=== PATIENT | male | born 1970 | race Caucasian/White ===

== ENCOUNTER 2021-09-01 18:26 | Emergency (ER) | payer OTHER, SELFPAY ==
--- NOTE | ~2021-09-01 | XR_ITS ---
EXAMINATION: XR ankle RT min 3V INDICATION: Right ankle pain, initial encounter TECHNIQUE: Four views of the right ankle are obtained. COMPARISON: None available FINDINGS: There is an acute, traumatic, closed, oblique fracture of the distal fibula which ends abov e the level of the tibial plafond. There is one cortical width of lateral displacement of the distal fracture fragment. There is soft tissue swelling at the fracture site. There is subtle irregularity a t the distal tip of the medial malleolus. IMPRESSION: 1. Oblique fracture of the distal fibula above the level of the tibial plafond. 2. Minimal irregularity at the distal tip of the medial malleolus. Correlate with the site for tender ness and possible nondisplaced avulsion. Reviewed, dictated and finalized at location A. IMPRESSION: 1. Oblique fracture of the distal fibula above the level of the tibial plafond. 2. Minimal irregularity at the distal tip of the medial malleolus. Correlate wi th the site for tenderness and possible nondisplaced avulsion.
--- NOTE | 2021-09-01 18:52 | ED.LOWEXIN ---
HPI - Extremity Injury (Lower) General Chief Complaint: Extremity Injury, Lower Stated Complaint: ankle pain Source: patient and family Mode of arrival: ambulatory History of Present Illness HPI Narrative: was playing with kids and slipped in the wet grass. ankle jaky TRUONG complaint: ankle injury Injury: Right: ankle Place: street/outdoors Severity: moderate Relieving factors: rest Exacerbating factors: weight bearing Context: running and walking Associated symptoms: snap/pop sensation Other symptoms: none Related Data Home Medications Medication Instructions Recorded Confirmed No Home Medications 09/01/21 09/01/21 Allergies Allergy/AdvReac Type Severity Reaction Status Date / Time No Known Allergies Allergy Unverified 09/01/21 18:57 Review of Systems Review of Systems: All systems reviewed & are unremarkable except as noted in HPI and below PMFSH Social History Social History (Updated 09/01/21 @ 18:53 by Jacinda Ocampo MD) Smoking status: Current every day smoker Alcohol intake: current Substance use: never Living arrangements: with family Exam Const: General: no acute distress and alert Orientation/consciousness: patient oriented x3 HENMT: Head: normal to inspection Eyes: Conjunctivae: conjunctivae normal Pupils: Equal, round and reactive pupils present Neck: Neck: normal visual inspection Chest: Chest palpation & inspection: normal inspection of the chest Resp: Effort & Inspection: normal respiratory effort Skin: General skin exam: normal color Neuro: General: patient oriented x3 Extrem: General: normal to inspection Other: r ankle tender to touch on lateral malleolus, mild swelling, no eccymosis Psych: Appearance: grossly normal Mental Status: mental status grossly normal Thought content: Yes Normal thought content present Critical Care Time Critical Care Time Critical Care Time: No Discharge Plan Discharge Clinical Impression: Fibula fracture Patient Disposition: Home, Self-Care Condition: Stable Instructions: Antibiotic Form, Ankle Fracture (ED) Prescriptions: No Action No Home Medications RF: 0 Follow-up/Referrals: Slade Flynn MD [Primary Care Provider] - Time of Disposition: 19:10
[2021-09-01 18:54] VITALS: BP 152/92; PULSE 92; RESP 20; TEMP 37.1; O2SAT 97
== END 2021-09-01 19:29 | disposition home or self-care (01) ==
PROVIDERS: Emergency Provider Emergency Medicine; PCP Family Medicine
DX: S82.831A Other fracture of upper and lower end of right fibula, initial encounter for closed fracture (principal); W01.0XXA Fall on same level from slipping, tripping and stumbling without subsequent striking against object, initial encounter; F17.200 Nicotine dependence, unspecified, uncomplicated
CPT/HCPCS: 73610; 99283; 99284; L2112

== ENCOUNTER 2021-09-09 09:49 | Outpatient (CLI) | payer OTHER, SELFPAY ==
--- NOTE | ~2021-09-09 | XR_ITS ---
XR ankle RT min 3V DATE: 09/09/2021 10:20 INDICATION: Lateral right ankle pain TECHNIQUE: 3 views COMPARISON: 09/01/2021 right ankle FINDINGS: There is one cortical width lateral displacement of the linear oblique fracture of the dist al fibula above the tibial plafond. Lucency at the tip of the medial malleolus may represent a small fracture. The posterior malleolus is intact. Ankle mortise is preserved. IMPRESSION: No interval change in position or alignment at the linear oblique fracture through the di stal fibular diametaphysis Possible nondisplaced fracture of the tip of the medial malleolus Reviewed, dictated and finalized at location B. IMPRESSION: No interval change in position or alignment at the linear oblique f racture through the distal fibular diametaphysis Possible nondisplaced fracture of the tip of the medial malleolus
== END 2021-09-09 09:50 | disposition home or self-care (01) ==
LOC: CHSIMG 09:53
PROVIDERS: PCP Family Medicine; Visit Provider Orthopaedic Surgery
DX: M25.571 Pain in right ankle and joints of right foot (principal)
CPT/HCPCS: 73610

== ENCOUNTER 2021-10-07 07:48 | Outpatient (CLI) | payer OTHER, SELFPAY ==
--- NOTE | ~2021-10-07 | XR_ITS ---
EXAMINATION: XR ankle RT min 3V INDICATION: Right fibular fracture follow-up TECHNIQUE: Three views of the right ankle are obtained. COMPARISON: 09/09/2021 FINDINGS: Again seen is an oblique fracture of the distal fibula which extends to the level of the ti bial plafond. Alignment is unchanged. There is minimal calcified callus formation at the fracture sit e. No additional acute osseous findings are evident. The soft tissues are unremarkable. IMPRESSION: 1. Oblique fracture of the distal fibula with minimal increase in calcified callus, otherwise no sign ificant change. Reviewed, dictated and finalized at location B. WARE PERFORMANCE ENGINEER IMPRESSION: 1. Oblique fracture of the distal fibula with minimal increase in calcified sergey kevin, otherwise no significant change.
== END 2021-10-07 07:49 | disposition home or self-care (01) ==
LOC: CHSIMG 07:50
PROVIDERS: PCP Family Medicine; Visit Provider Orthopaedic Surgery
DX: M25.571 Pain in right ankle and joints of right foot (principal)
CPT/HCPCS: 73610

== ENCOUNTER 2025-11-08 17:16 | Outpatient (CLI) | payer OTHER, SELFPAY ==
[2025-11-08 17:32] LABS: Hematocrit 47.4 % (40.0-54.0); Hemoglobin 16.9 g/dL (14.0-18.0); Immature Granulocyte Percent A 0.5 % (0.0-0.0); Lymphocytes Absolute Auto 3.05 K/mm3 (1.10-4.50); Mean Corpuscular HGB Conc 35.7 g/dL (32-36); Mean Corpuscular Hemoglobin 32.2 pg (27.0-31.0); Mean Corpuscular Volume 90.3 fL (78.0-102.0); Nucleated Red Blood Cells Absolute Auto 0.00 K/mm3 (0.00-0.00); Nucleated Red Blood Cells Perc 0.0 % (0-0.0); Platelet Count Result 183 K/mm3 (150-420); Red Blood Count 5.25 M/mm3 (4.70-6.10); White Blood Count 8.1 K/mm3 (4.8-10.8)
[2025-11-08 17:53] LABS: Alanine Aminotransferase 50 U/L (6-50); Albumin Level 5.0 g/dL (3.5-5.1); Alkaline Phosphatase 91 U/L (38-126); Anion Gap 9 mmol/L (4-12); Aspartate Amino Transferase 34 U/L (17-59); Bilirubin,Total 0.6 mg/dL (0.2-1.3); Blood Urea Nitrogen 11 mg/dL (9-20); Calcium 9.5 mg/dL (8.4-10.2); Carbon Dioxide 30 mmol/L (22-30); Chloride 101 mmol/L (98-107); Estimated Glomerular Filt Rate > 60; Glucose 165 mg/dL (65-110); Osmolality Calculated 293 mOsm/kg (285-295); Potassium 4.3 mmol/L (3.4-5.0); Sodium 140 mmol/L (137-145); Total Protein 7.9 g/dL (6.3-8.2)
[2025-11-08 18:23] LABS: Prostate Specific Antigen 1.8 ng/mL (< OR = 4.0)
--- OUTSIDE RECORDS SUMMARY | 2025-11-08 21:10 | XMS_ITS | Clinical Summary ---
Author Organization [facility] Address [address] [place] [address] Care Team Providers Care Wrapping Machine Operator Name Role Phone Slade Flynn MD Primary Care Provide r Allergies No known active allergies Medications alprostadiL ([facility]) 500 mcg pellet Insert 1 each (500 mcg total) into urethra as needed for erectile dysfunction 10 suppository 2 2 Active sildenafiL, pulm.hypertens ion, (REVATIO) 20 mg tablet Take 4 tablets by mouth as needed before intercourse 360 tablet 3 2 Active Active Problems Problem Noted Date Diagnosed Date Smoking addiction 12/15/2019 Assessment & Plan (12/13/2020 3:49 PM OFFAL WORKER): Smoking cessation discussed Pt not ready to quit Assessment & Plan (12/15/2019 12:13 PM OFFAL WORKER): Smoking cessation discussed at length Patient to let me know if he wants to try Chantix ED (erectile dysfunction) 09/08/2017 Assessment & Plan (02/11/2022 1:08 PM CDT): The use of alprostadil ( [facility] ) was discussed Pt agreed to try it rx sent. Assessment & Plan (12/13/2020 3:49 PM OFFAL WORKER): Continue sildenafil, 60-80 mg prn Pt is not taking any nitrates or any other meds Assessment & Plan (12/15/2019 12:13 PM OFFAL WORKER): Continue sildenafil Assessment & Plan (09/08/2017 3:31 PM CDT): Continue Sildenafil Resolved Problems Problem Noted Date Diagnosed Date Resolved Date Male hypogonadism 09/08/2017 12/16/2018 Medical History Medical History Date Comments Nicotine addiction Social History Tobacco Use Types Packs/Day Years Used Date Smoking Tobacco: Light Smoker Smokeless Tobacco: Never Comments:Smoking History Pac ks/day: 1 Cigars Alcohol Use Standard Drinks/Week Comments Yes 0 (1 standard drink = 0.6 oz pur e alcohol) PHQ-2 Answer Date Recorded PHQ-2 Total Score (If total score is 3 or more points, staff should administer the PHQ-9) 0 02/11/2022 Personal Safety Answer Date Recorded Getting School Help Needed Not on file 01/29 Sex and Gender Information Value Date Recorded Sex Assigned at Not on file Legal Sex Male 1:42 PM CDT Gender Identity Not on file Sexual Orientation Not on file Last Filed Vital Signs Vital Sign Reading Time Taken Comments Blood Pressure 140/90 02/11/2022 11:28 AM CDT Pulse 75 02/11/2022 11:28 AM CDT Temperature - - Respiratory Rate 16 02/11/2022 11:28 AM CDT Oxygen Saturation - - Inhaled Oxygen Concentration - - Weight 86.6 kg (191 lb) 02/11/2022 11:28 AM CDT Height 177.8 cm (5' 10) 02/11/2022 11:28 AM CDT Body Mass Index 27.41 02/11/2022 11:28 AM CDT Plan of Treatment Not on file Insurance [employer] Care Teams Wrapping Machine Operator Relationship Specialty Start Date End Date Slade Flynn MD [address] [place] [address] PCP - General 03/26/17
[2025-11-09 10:13] LABS: Hemoglobin A1C 7.4 % (<5.7)
== END 2025-11-08 17:17 | disposition home or self-care (01) ==
PROVIDERS: PCP Family Medicine; Visit Provider Family Medicine
DX: Z01.818 Encounter for other preprocedural examination (principal); Z12.5 Encounter for screening for malignant neoplasm of prostate
CPT/HCPCS: 36415; 80053; 83036; 84153; 85025; G0103